=== PATIENT | female | born 1960 | race Caucasian/White ===

== ENCOUNTER 2016-10-08 18:34 | Inpatient (IN) | payer MEDICAID ==
[~2016-10-08] VITALS: Ht 157.5 cm; Wt 56.7 kg
[2016-10-08] MEDS ORDERED: HALOPERIDOL LACTATE 5 MG/ML INJ VIAL ONE (19:05)
[2016-10-08] MEDS ORDERED: diphenhdrAMINE HCL 50 MG/1 ML VL ONE (19:05)
[2016-10-08] MEDS ORDERED: LORazepam 2MG/ML-1ML VIAL ONE (19:05)
[2016-10-08] MEDS ORDERED: HALOPERIDOL LACTATE 5 MG/ML INJ VIAL IM ONE (19:15)
[2016-10-08] MEDS ORDERED: diphenhdrAMINE HCL 50 MG/1 ML VL IM ONE (19:15)
[2016-10-08] MEDS ORDERED: LORazepam 2MG/ML-1ML VIAL IM ONE (19:15)
[2016-10-08 20:14] LABS: Basophils # (auto) 0 uL; Basophils % (auto) 0.3 % (0.0-2.0); Eosinophils # (auto) 0 uL; Hematocrit 44.6 % (36.0-46.0); Hemoglobin 14.7 g/dL (12.2-16.2); Lymphocytes # (auto) 3.4 uL; Lymphocytes % (auto) 33.6 % (10.0-50.0); Mean Corpuscular Hemoglobin 30.7 pg (28.0-32.0); Mean Corpuscular Hgb Conc. 32.9 g/dL (32.0-36.0); Mean Corpuscular Volume 93.2 fL (80.0-100.0); Mean Platelet Volume 9.2 fL (7.4-10.4); Monocytes # (auto) 0.6 uL; Monocytes % (auto) 5.8 % (0.0-12.0); Neutrophils # (auto) 6.2 uL; Neutrophils % (auto) 60.3 % (37.0-80.0); Platelet Count (auto) 300 10^3/uL (140-450); Red Cell Distribution Width 14.4 % (11.6-16.0); White Blood Cell 10.2 10^3/uL (4.4-10.8)
[2016-10-08 20:37] LABS: Albumin 3.6 g/dL (3.4-5.0); Anion Gap 14 (5-15); Blood Urea Nitrogen 16 mg/dL (7-18); Calcium 9.3 mg/dL (8.5-10.1); Carbon Dioxide 22 mmol/L (21-32); Chloride 110 mmol/L (98-107); Glucose 116 mg/dL (74-106); Magnesium 1.6 mg/dL (1.6-2.6); Potassium 3.6 mmol/L (3.5-5.1); Sodium 146 mmol/L (136-145)
[2016-10-08 20:39] LABS: Aspartate Aminotransferase 18 U/L (15-37); BUN/Creatinine Ratio 18.2; GFR African American 85 mL/min; GFR Non-African American 70 mL/min
[2016-10-08 20:42] LABS: Acetaminophen < 2.0 ug/mL (10-30)
[2016-10-08 20:47] LABS: Alkaline Phosphatase 87 U/L (45-117); Bilirubin, Total 0.3 mg/dL (0.2-1.0); Total Protein 6.8 g/dL (6.4-8.2)
[2016-10-08] MEDS ORDERED: ONDANSETRON HCL 4 MG/2 ML VIAL IV ONE (23:30)
[2016-10-08] MEDS ORDERED: NALBUPHINE HCL 10 MG/1ml INJECTION IV ONE (23:30)
[2016-10-09] MEDS ORDERED: diphenhdrAMINE HCL 50 MG/1 ML VL IV ONE (02:15)
[2016-10-09] MEDS ORDERED: HALOPERIDOL LACTATE 5 MG/ML INJ VIAL IM ONE (02:15)
[2016-10-09] MEDS ORDERED: LORazepam 2MG/ML-1ML VIAL IM ONE (02:15)
[2016-10-09] MEDS ORDERED: DIVA500T7 PO ×2 (05:41→05:52)
[2016-10-09] MEDS ORDERED: ATOR10TA52 PO (05:52)
[2016-10-09] MEDS ORDERED: ASP81EC PO (05:52)
[2016-10-09] MEDS ORDERED: METF-314 PO (05:52)
[2016-10-09 06:10] LABS: Urine Squamous Epithelial Cell None Seen /hpf (<5)
[2016-10-09 06:23] LABS: Urine Bilirubin Negative (Negative); Urine Color Yellow (Yellow); Urine Glucose Trace mg/dL (Normal)
[2016-10-09 06:24] LABS: Urine Blood Negative /uL (Negative); Urine Ketone Trace (Negative); Urine Mucus FEW (None Seen); Urine Nitrite Negative (Negative); Urine RBC 2 /hpf (0 - 4); Urine WBC Clumps FEW /hpf (None Seen)
[2016-10-09] MEDS ORDERED: HYDROcodone-ACET 5/325MG TAB PO PRN (06:30)
[2016-10-09] MEDS ORDERED: ONDANSETRON HCL 4 MG/2 ML VIAL IV PRN (06:30)
[2016-10-09] MEDS ORDERED: TEMAZEPAM 15 MG CAP PO PRN (06:30)
[2016-10-09] MEDS ORDERED: ACETAMINOPHEN 325 MG TAB PO PRN (06:30)
[2016-10-09] MEDS ORDERED: DEXTROSE (50%) 50ML SYRG IV PRN ×2 (06:30→13:45)
[2016-10-09] MEDS ORDERED: ENOXAPARIN SOD 40 MG/0.4 ML SYRINGE SC SCH (10:00)
[2016-10-09] MEDS ORDERED: FAMOTIDINE 20 MG TAB PO SCH (10:00)
[2016-10-09] MEDS ORDERED: InsuLIN REG 1unit/0.01ml Soln (100units/ml) SC SCH ×2 (12:00→17:00)
[2016-10-09] MEDS ORDERED: ACCU-CHEK COMFORT CURVE STRIP VI SCH ×2 (12:00→17:00)
[2016-10-09 13:51] VITALS: BP 111/70
[2016-10-09] MEDS ORDERED: ATORVASTATIN 20 MG TAB PO SCH (22:00)
== END 2016-10-09 15:35 | disposition left against medical advice (07) | DRG 52 ==
LOC: ER 18:39 → OVERFLOW 18:40
PROVIDERS: ADMIT Nurse Practitioner; ATTEND Internal Medicine
DX: G93.41 Metabolic encephalopathy (principal); F23 Brief psychotic disorder; E11.9 Type 2 diabetes mellitus without complications; G40.909 Epilepsy, unspecified, not intractable, without status epilepticus; E78.5 Hyperlipidemia, unspecified; Z53.21 Procedure and treatment not carried out due to patient leaving prior to being seen by health care provider
CPT/HCPCS: 36415; 70450; 80053; 80307; 80320; 80329; 81001; 82962; 83735; 84484; 85025; 93005; 96372; 96374; 96375; J1815; J2405

== ENCOUNTER 2016-10-21 01:09 | Inpatient (IN) | payer MEDICAID ==
[~2016-10-21] VITALS: Ht 167.6 cm; Wt 66.5 kg
[~2016-10-21 01:09] MED LIST: ASP81EC PO; ATOR10TA52 PO; DIVA500T7 PO; METF-314 PO
[2016-10-21] MEDS ORDERED: HALOPERIDOL LACTATE 5 MG/ML INJ VIAL IM ONE (01:30)
[2016-10-21] MEDS ORDERED: LORazepam 2MG/ML-1ML VIAL IV ONE (01:30)
[2016-10-21] MEDS ORDERED: diphenhdrAMINE HCL 50 MG/1 ML VL IV ONE (01:30)
[2016-10-21] MEDS ORDERED: SODIUM CHLORIDE 0.9% 500 ML IVB ONE (01:42)
[2016-10-21 02:04] LABS: Basophils # (auto) 0 uL; Basophils % (auto) 0.3 % (0.0-2.0); Eosinophils # (auto) 0 uL; Eosinophils % (auto) 0.1 % (0.0-7.0); Hematocrit 41.3 % (36.0-46.0); Hemoglobin 13.9 g/dL (12.2-16.2); Lymphocytes # (auto) 4.7 uL; Lymphocytes % (auto) 47.2 % (10.0-50.0); Mean Corpuscular Hemoglobin 30.7 pg (28.0-32.0); Mean Corpuscular Hgb Conc. 33.5 g/dL (32.0-36.0); Mean Corpuscular Volume 91.6 fL (80.0-100.0); Mean Platelet Volume 8.3 fL (7.4-10.4); Monocytes # (auto) 0.6 uL; Monocytes % (auto) 6.3 % (0.0-12.0); Neutrophils # (auto) 4.6 uL; Neutrophils % (auto) 46.1 % (37.0-80.0); Platelet Count (auto) 316 10^3/uL (140-450); Red Cell Distribution Width 14.6 % (11.6-16.0)
[2016-10-21 02:11] LABS: Urine Bilirubin Negative (Negative); Urine Blood Negative /uL (Negative); Urine Color Yellow (Yellow); Urine Glucose Normal (Normal); Urine Ketone Negative (Negative); Urine Mucus FEW (None Seen); Urine Nitrite Negative (Negative); Urine RBC 1 /hpf (0 - 4); Urine Squamous Epithelial Cell FEW /hpf (<5); Urine Urobilinogen Normal (Negative)
[2016-10-21 02:17] LABS: Partial Thromboplastin Time 27.6 sec (22.64-33.71); Prothrombin Time 10.9 sec (9.37-12.3)
[2016-10-21] MEDS ORDERED: SODIUM CHLORIDE 0.9% 1,000 ML IV ONE ×2 (02:24→02:33)
[2016-10-21 02:29] LABS: Albumin 3.2 g/dL (3.4-5.0); Anion Gap 12 (5-15); Aspartate Aminotransferase 23 U/L (15-37); BUN/Creatinine Ratio 20.6; Blood Urea Nitrogen 14 mg/dL (7-18); Calcium 8.9 mg/dL (8.5-10.1); Carbon Dioxide 26 mmol/L (21-32); Chloride 108 mmol/L (98-107); GFR African American 115 mL/min; GFR Non-African American 95 mL/min; Glucose 98 mg/dL (74-106); Magnesium 1.8 mg/dL (1.6-2.6); Potassium 4.1 mmol/L (3.5-5.1); Sodium 146 mmol/L (136-145)
[2016-10-21 02:35] LABS: Alkaline Phosphatase 86 U/L (45-117); Bilirubin, Total 0.4 mg/dL (0.2-1.0); Total Protein 6.5 g/dL (6.4-8.2)
[2016-10-21 03:18] LABS: B-Type Natriuretic Peptide 37.79 pg/mL (0-100)
[2016-10-21 03:45] LABS: Temperature: 22.5 C (20.0-25.0)
[2016-10-21] MEDS ORDERED: OLAN5TAB30 PO (05:27)
[2016-10-21] MEDS ORDERED: DIVA250T6 PO (05:27)
[2016-10-21] MEDS ORDERED: ATE25T PO (05:27)
[2016-10-21] MEDS ORDERED: ATOR20TA50 PO (05:27)
[2016-10-21] MEDS ORDERED: SODIUM CHLORIDE 0.9% 1,000 ML IV SCH (05:28)
[2016-10-21] MEDS ORDERED: NITROGLYCERIN 0.4 MG SL TAB SL PRN (05:30)
[2016-10-21] MEDS ORDERED: DOCUSATE SOD 100 MG CAP PO PRN (05:30)
[2016-10-21] MEDS ORDERED: MORPHINE SULF INJ 2 MG/ML SYRINGE 1ML IV PRN (05:30)
[2016-10-21] MEDS ORDERED: DEXTROSE (50%) 50ML SYRG IV PRN ×2 (05:30→16:30)
[2016-10-21 08:00] VITALS: BP 108/84
[2016-10-21] MEDS: InsuLIN REG 1unit/0.01ml Soln (100units/ml) SC SCH ×4 (08:00→21:55)
[2016-10-21] MEDS: ACCU-CHEK COMFORT CURVE STRIP VI SCH ×4 (08:00→21:54)
[2016-10-21] MEDS: ATENOLOL 25 MG TAB PO SCH ×2 (10:00→21:54)
[2016-10-21] MEDS: ASPirin-EC 81 mg tab PO SCH (10:00)
[2016-10-21] MEDS ORDERED: OLANZapine 5 MG TAB PO ONE (16:30)
[2016-10-21 20:00] VITALS: BP 106/60
[2016-10-21 21:00] VITALS: BP 106/60
[2016-10-21] MEDS ORDERED: ATORVASTATIN 20 MG TAB PO SCH (22:00)
[2016-10-21] MEDS ORDERED: OLANZapine 5 MG TAB PO SCH (22:00)
[2016-10-22 05:00] VITALS: BP 108/67
[2016-10-22] MEDS: ACCU-CHEK COMFORT CURVE STRIP VI SCH ×3 (06:16→17:00)
[2016-10-22] MEDS: InsuLIN REG 1unit/0.01ml Soln (100units/ml) SC SCH ×3 (06:16→17:00)
[2016-10-22 08:00] VITALS: BP 108/67
[2016-10-22 09:00] VITALS: BP 115/70
[2016-10-22] MEDS ORDERED: OLANZapine 5 MG TAB PO SCH (10:00)
[2016-10-22] MEDS: ATENOLOL 25 MG TAB PO SCH (10:14)
[2016-10-22] MEDS: ASPirin-EC 81 mg tab PO SCH (10:14)
[2016-10-22 13:00] VITALS: BP 108/70
[2016-10-22 17:00] VITALS: BP 127/73
[2016-10-22 17:28] VITALS: BP 115/70
== END 2016-10-22 19:06 | disposition home or self-care (01) | DRG 52 ==
LOC: ER 01:09 → EDBD 01:09 → TELE 01:10 → WEST WING 07:20 → TELE-WESTW 07:35 → WEST WING 19:17
PROVIDERS: ADMIT Emergency Medicine; ATTEND Family Medicine
DX: G93.41 Metabolic encephalopathy (principal); E87.0 Hyperosmolality and hypernatremia; E44.1 Mild protein-calorie malnutrition; E78.5 Hyperlipidemia, unspecified; F20.9 Schizophrenia, unspecified; E11.9 Type 2 diabetes mellitus without complications; F17.210 Nicotine dependence, cigarettes, uncomplicated; J98.11 Atelectasis; F31.9 Bipolar disorder, unspecified; G40.909 Epilepsy, unspecified, not intractable, without status epilepticus; I10 Essential (primary) hypertension; Z91.14 Patient's other noncompliance with medication regimen; Z68.23 Body mass index [BMI] 23.0-23.9, adult
CPT/HCPCS: 36415; 51702; 70450; 71010; 80053; 80307; 80320; 81001; 82962; 83735; 83880; 84484; 85025; 85610; 85730; 93005; 96361; 96372; 96374; 96375; J1815

== ENCOUNTER 2016-11-20 12:14 | Inpatient (IN) | payer MEDICAID ==
[~2016-11-20] VITALS: Ht 157.5 cm; Wt 63.4 kg
[~2016-11-20 12:14] MED LIST changes: +ATE25T PO; +ATOR20TA50 PO; +DIVA250T6 PO; -METF-314 PO; +METF-371 PO; +OLAN5TAB30 PO
[2016-11-20 13:13] LABS: Basophils # (auto) 0.1 uL; Basophils % (auto) 0.5 % (0.0-2.0); CONDITION Y; Eosinophils # (auto) 0 uL; Eosinophils % (auto) 0.1 % (0.0-7.0); Lymphocytes # (auto) 4.5 uL; Lymphocytes % (auto) 32.4 % (10.0-50.0); Mean Corpuscular Hemoglobin 31.4 pg (28.0-32.0); Mean Corpuscular Hgb Conc. 34.1 g/dL (32.0-36.0); Mean Corpuscular Volume 91.9 fL (80.0-100.0); Mean Platelet Volume 7.9 fL (7.4-10.4); Monocytes # (auto) 1.2 uL; Monocytes % (auto) 8.7 % (0.0-12.0); Neutrophils % (auto) 58.3 % (37.0-80.0); Platelet Count (auto) 295 10^3/uL (140-450); Red Cell Distribution Width 15.3 % (11.6-16.0); White Blood Cell 13.8 10^3/uL (4.4-10.8)
[2016-11-20 13:31] LABS: Albumin 3.2 g/dL (3.4-5.0); BUN/Creatinine Ratio 12.1; Calcium 8.8 mg/dL (8.5-10.1); Potassium 3.4 mmol/L (3.5-5.1)
[2016-11-20 13:46] LABS: Bilirubin, Total 0.2 mg/dL (0.2-1.0); Total Protein 6.7 g/dL (6.4-8.2)
[2016-11-20] MEDS ORDERED: CLINDAMYCIN 600MG IV 50 ML IV ONE (17:30)
[2016-11-20] MEDS ORDERED: KETOROLAC TROMETH 30 MG/ML 1ML VIAL IV ONE (17:30)
[2016-11-20] MEDS ORDERED: TETANUS-DIPTH-ACEL PERTUSSIS 0.5ML SYRG IM ONE (17:30)
[2016-11-20] MEDS ORDERED: ENOXAPARIN SOD 100 MG/1 ML SYRINGE SC ONE (21:15)
[2016-11-20] MEDS ORDERED: TEMAZEPAM 15 MG CAP PO PRN (22:45)
[2016-11-20] MEDS ORDERED: POTASSIUM CHL 20 Meq TABLET PO ONE (22:45)
[2016-11-20] MEDS ORDERED: ONDANSETRON HCL 4 MG/2 ML VIAL IV PRN (22:45)
[2016-11-20] MEDS ORDERED: traMADol HCL 50 MG TAB PO PRN (22:45)
[2016-11-20] MEDS ORDERED: DEXTROSE (50%) 50ML SYRG IV PRN (22:45)
[2016-11-21 02:00] VITALS: BP 147/84
[2016-11-21 05:30] VITALS: BP 122/75
[2016-11-21] MEDS: ACCU-CHEK COMFORT CURVE STRIP VI SCH ×3 (06:00→22:23)
[2016-11-21] MEDS: InsuLIN REG 1unit/0.01ml Soln (100units/ml) SC SCH ×3 (06:00→22:00)
[2016-11-21 07:35] LABS: Basophils # (auto) 0 uL; Basophils % (auto) 0.3 % (0.0-2.0); CONDITION Y; Eosinophils # (auto) 0 uL; Eosinophils % (auto) 0.1 % (0.0-7.0); Hematocrit 41.4 % (36.0-46.0); Hemoglobin 13.8 g/dL (12.2-16.2); Lymphocytes # (auto) 4.1 uL; Lymphocytes % (auto) 31.9 % (10.0-50.0); Mean Corpuscular Hemoglobin 30.8 pg (28.0-32.0); Mean Corpuscular Hgb Conc. 33.3 g/dL (32.0-36.0); Mean Corpuscular Volume 92.2 fL (80.0-100.0); Mean Platelet Volume 8.3 fL (7.4-10.4); Monocytes # (auto) 1.1 uL; Monocytes % (auto) 8.2 % (0.0-12.0); Neutrophils # (auto) 7.6 uL; Neutrophils % (auto) 59.5 % (37.0-80.0); Platelet Count (auto) 289 10^3/uL (140-450); Red Cell Distribution Width 14.9 % (11.6-16.0); White Blood Cell 12.8 10^3/uL (4.4-10.8)
[2016-11-21 07:47] LABS: BUN/Creatinine Ratio 22.8; Bilirubin, Total 0.4 mg/dL (0.2-1.0); Calcium 8.7 mg/dL (8.5-10.1); Potassium 3.8 mmol/L (3.5-5.1); Total Protein 6.4 g/dL (6.4-8.2)
[2016-11-21] MEDS ORDERED: RIS1T PO (07:58)
[2016-11-21 08:17] VITALS: BP 105/75
[2016-11-21] MEDS: cefTRIAXone 1GM/50ML D5W 50 ML IV SCH (08:55)
[2016-11-21] MEDS ORDERED: ENOXAPARIN SOD 80 MG/0.8ML SYRINGE SC SCH (10:00)
[2016-11-21] MEDS: ATENOLOL 25 MG TAB PO SCH ×2 (10:01→22:23)
[2016-11-21] MEDS: FAMOTIDINE 20 MG TAB PO SCH ×2 (10:01→22:22)
[2016-11-21 13:02] VITALS: BP 123/76
[2016-11-21] MEDS ORDERED: DEXTROSE (50%) 50ML SYRG IV PRN (17:30)
[2016-11-21] MEDS ORDERED: OLANZapine 5 MG TAB PO ONE (17:45)
[2016-11-21] MEDS ORDERED: risperiDONE 1 MG TAB PO ONE (17:45)
[2016-11-21] MEDS ORDERED: ASPirin-EC 81 mg tab PO ONE (17:45)
[2016-11-21 22:00] VITALS: BP 138/86
[2016-11-21] MEDS ORDERED: ATORVASTATIN 20 MG TAB PO SCH (22:00)
[2016-11-22 05:46] LABS: Basophils # (auto) 0.1 uL; Basophils % (auto) 0.5 % (0.0-2.0); CONDITION Y; Eosinophils # (auto) 0 uL; Eosinophils % (auto) 0.1 % (0.0-7.0); Hematocrit 41.3 % (36.0-46.0); Lymphocytes # (auto) 4.4 uL; Lymphocytes % (auto) 38.1 % (10.0-50.0); Mean Corpuscular Hemoglobin 30.9 pg (28.0-32.0); Mean Corpuscular Hgb Conc. 33.8 g/dL (32.0-36.0); Mean Corpuscular Volume 91.5 fL (80.0-100.0); Mean Platelet Volume 8.2 fL (7.4-10.4); Monocytes # (auto) 0.8 uL; Neutrophils # (auto) 6.2 uL; Neutrophils % (auto) 54.3 % (37.0-80.0); Platelet Count (auto) 311 10^3/uL (140-450); Red Cell Distribution Width 14.7 % (11.6-16.0); White Blood Cell 11.5 10^3/uL (4.4-10.8)
[2016-11-22 05:50] VITALS: BP 128/74
[2016-11-22 06:10] LABS: BUN/Creatinine Ratio 32.2; Calcium 9.2 mg/dL (8.5-10.1); Magnesium 2.1 mg/dL (1.6-2.6); Potassium 4.2 mmol/L (3.5-5.1)
[2016-11-22] MEDS: ACCU-CHEK COMFORT CURVE STRIP VI SCH ×2 (06:38→11:30)
[2016-11-22] MEDS: InsuLIN REG 1unit/0.01ml Soln (100units/ml) SC SCH ×2 (06:39→11:18)
[2016-11-22] MEDS: cefTRIAXone 1GM/50ML D5W 50 ML IV SCH (09:00)
[2016-11-22 09:01] VITALS: BP 138/88
[2016-11-22] MEDS ORDERED: OLANZapine 5 MG TAB PO SCH (10:00)
[2016-11-22] MEDS ORDERED: ENOXAPARIN SOD 40 MG/0.4 ML SYRINGE SC SCH (10:00)
[2016-11-22] MEDS ORDERED: ASPirin-EC 81 mg tab PO SCH (10:00)
[2016-11-22] MEDS ORDERED: risperiDONE 1 MG TAB PO SCH (10:00)
[2016-11-22] MEDS: FAMOTIDINE 20 MG TAB PO SCH (10:14)
[2016-11-22] MEDS: ATENOLOL 25 MG TAB PO SCH (10:16)
[2016-11-22] MEDS ORDERED: CLIN1CAP4 PO (11:08)
[2016-11-22] MEDS ORDERED: SACC250C PO (11:08)
[2016-11-22] MEDS ORDERED: CEPH-37 PO (11:08)
[2016-11-22 11:50] VITALS: BP 130/69
[2016-11-22 12:55] VITALS: BP 138/88
[2016-11-22 13:20] VITALS: BP 138/88
== END 2016-11-22 14:10 | disposition home or self-care (01) | DRG 720 ==
LOC: ER 12:14 → OVERFLOW 12:15 → WEST WING 11-21 01:45
PROVIDERS: ADMIT Internal Medicine; ATTEND Internal Medicine
DX: A41.9 Sepsis, unspecified organism (principal); I82.91 Chronic embolism and thrombosis of unspecified vein; I10 Essential (primary) hypertension; L03.115 Cellulitis of right lower limb; E11.9 Type 2 diabetes mellitus without complications; F17.210 Nicotine dependence, cigarettes, uncomplicated; F20.9 Schizophrenia, unspecified; F32.9 Major depressive disorder, single episode, unspecified; F41.9 Anxiety disorder, unspecified; E66.9 Obesity, unspecified; E78.5 Hyperlipidemia, unspecified; M19.90 Unspecified osteoarthritis, unspecified site; Z88.5 Allergy status to narcotic agent; Z88.8 Allergy status to other drugs, medicaments and biological substances; Z23 Encounter for immunization; Z68.25 Body mass index [BMI] 25.0-25.9, adult
CPT/HCPCS: 36415; 73610; 73630; 80048; 80053; 80061; 82962; 83036; 83735; 85025; 87040; 87081; 90471; 90715; 93971; 96365; 96366; 96367; 96375; J0696; J1815; J1885; J3490

== ENCOUNTER 2017-02-19 14:42 | Inpatient (IN) | payer MEDICAID ==
[~2017-02-19] VITALS: Ht 157.5 cm; Wt 71.3 kg
[~2017-02-19 14:42] MED LIST changes: +CEPH-37 PO; +CLIN1CAP4 PO; +RIS1T PO; +SACC250C PO
[2017-02-19] MEDS ORDERED: SODIUM CHLORIDE 0.9% 1,000 ML IV ONE (15:46)
[2017-02-19] MEDS ORDERED: MORPHINE SULF INJ 2 MG/ML SYRINGE 1ML IV PRN ×4 (16:00→18:30)
[2017-02-19] MEDS ORDERED: ONDANSETRON HCL 4 MG/2 ML VIAL IV ONE (16:00)
[2017-02-19] MEDS ORDERED: ASPirin 81 mg TAB PO ONE (16:00)
[2017-02-19 16:03] LABS: Basophils # (auto) 0.1 uL; Basophils % (auto) 0.5 % (0.0-2.0); Eosinophils # (auto) 0 uL; Eosinophils % (auto) 0.1 % (0.0-7.0); Hematocrit 46.2 % (36.0-46.0); Lymphocytes # (auto) 4.8 uL; Lymphocytes % (auto) 50.9 % (10.0-50.0); Mean Corpuscular Hemoglobin 31.2 pg (28.0-32.0); Mean Corpuscular Hgb Conc. 34.6 g/dL (32.0-36.0); Mean Corpuscular Volume 90.2 fL (80.0-100.0); Monocytes # (auto) 0.5 uL; Monocytes % (auto) 4.8 % (0.0-12.0); Neutrophils # (auto) 4.2 uL; Neutrophils % (auto) 43.7 % (37.0-80.0); Nucleated Red Blood Cells % 0.2 %; Platelet Count (auto) 221 10^3/uL (140-450); Red Cell Distribution Width 14.9 % (11.8-14.3); White Blood Cell 9.5 10^3/uL (4.4-10.8)
[2017-02-19 16:07] LABS: Albumin 3.6 g/dL (3.4-5.0); BUN/Creatinine Ratio 18.4; Bilirubin, Total 0.2 mg/dL (0.2-1.0); Potassium 3.4 mmol/L (3.5-5.1); Total Protein 6.9 g/dL (6.4-8.2)
[2017-02-19 16:54] LABS: Partial Thromboplastin Time 27.3 sec (22.64-33.71); Prothrombin Time 10.9 sec (9.37-12.3)
[2017-02-19] MEDS ORDERED: POTASSIUM CHL 20 Meq TABLET PO ONE (17:15)
[2017-02-19] MEDS ORDERED: TEMAZEPAM 15 MG CAP PO PRN (18:30)
[2017-02-19] MEDS ORDERED: NITROGLYCERIN 0.4 MG SL TAB SL PRN (18:30)
[2017-02-19] MEDS ORDERED: DEXTROSE (50%) 50ML SYRG IV PRN (18:30)
[2017-02-19] MEDS: SODIUM CHLORIDE 0.9% 1,000 ML IV SCH (18:44)
[2017-02-19 22:00] VITALS: BP 109/79
[2017-02-19] MEDS: ATENOLOL 25 MG TAB PO SCH (22:00)
[2017-02-19] MEDS: ACCU-CHEK COMFORT CURVE STRIP VI SCH (22:00)
[2017-02-19] MEDS: InsuLIN REG 1unit/0.01ml Soln (100units/ml) SC SCH (22:00)
[2017-02-19 22:27] VITALS: BP 109/79
[2017-02-19] MEDS: OLANZapine 5 MG TAB PO SCH (22:37)
[2017-02-19] MEDS: ATORVASTATIN 20 MG TAB PO SCH (22:37)
[2017-02-19] MEDS: risperiDONE 1 MG TAB PO SCH (22:38)
[2017-02-20] VITALS (8 sets, daily range): BP systolic 82–156; BP diastolic 47–79
[2017-02-20] MEDS: InsuLIN REG 1unit/0.01ml Soln (100units/ml) SC SCH ×4 (06:22→21:42)
[2017-02-20] MEDS: risperiDONE 1 MG TAB PO SCH ×4 (06:22→21:42)
[2017-02-20] MEDS: ACCU-CHEK COMFORT CURVE STRIP VI SCH ×4 (06:22→21:42)
[2017-02-20] MEDS ORDERED: FLORASTOR (S. BOULARDII) 250 MG CAP PO SCH (10:00)
[2017-02-20] MEDS: ATENOLOL 25 MG TAB PO SCH ×2 (10:00→22:00)
[2017-02-20] MEDS ORDERED: NITROGLYCERIN 0.2MG/HR TOPICAL PATCH TD SCH (10:00)
[2017-02-20] MEDS ORDERED: ASPirin-EC 81 mg tab PO SCH (10:00)
[2017-02-20] MEDS ORDERED: ENOXAPARIN SOD 40 MG/0.4 ML SYRINGE SC SCH (10:00)
[2017-02-20] MEDS ORDERED: PANTOPRAZOLE 40 MG TAB PO SCH (10:00)
[2017-02-20] MEDS: SODIUM CHLORIDE 0.9% 1,000 ML IV SCH ×2 (11:05→21:41)
[2017-02-20] MEDS ORDERED: ISOSORBIDE DINITRATE 10 MG TAB PO ONE (12:15)
[2017-02-20] MEDS: ISOSORBIDE DINITRATE 10 MG TAB PO SCH (17:48)
[2017-02-20] MEDS: ATORVASTATIN 20 MG TAB PO SCH (21:41)
[2017-02-20] MEDS: OLANZapine 5 MG TAB PO SCH (21:42)
[2017-02-21 05:19] VITALS: BP 118/60
[2017-02-21] MEDS: ISOSORBIDE DINITRATE 10 MG TAB PO SCH (06:00)
[2017-02-21] MEDS: risperiDONE 1 MG TAB PO SCH (06:35)
[2017-02-21] MEDS: InsuLIN REG 1unit/0.01ml Soln (100units/ml) SC SCH (06:36)
[2017-02-21] MEDS: ACCU-CHEK COMFORT CURVE STRIP VI SCH (06:36)
[2017-02-21 08:00] VITALS: BP 95/47
[2017-02-21] MEDS ORDERED: IODIXANOL 320MG/ML 100ML BTL IV ONE (08:54)
[2017-02-21] MEDS ORDERED: LIDOCAINE 2%HCL (LOCAL ANESTH.) INJ 20ML MDV ONE (08:54)
[2017-02-21] MEDS ORDERED: MIDAZOLAM HCL 1MG/1ML-2 ML VIAL ONE (09:33)
[2017-02-21] MEDS ORDERED: VERAPAMIL 2.5MG/ML INJ 2ML VIAL IV ONE (09:34)
[2017-02-21] MEDS ORDERED: SODIUM CHL 0.9% 0 ML ONE (09:34)
[2017-02-21] MEDS ORDERED: fentaNYL CITRATE 100 MCG/2 ML VL ONE (09:34)
[2017-02-21] MEDS ORDERED: ANGIOMAX 250 MG VIAL IV ONE (09:34)
[2017-02-21 10:19] VITALS: BP 103/52
[2017-02-21] MEDS ORDERED: HEPARIN SODIUM (PORCINE) 5000 UNITS/ML 1ML VIAL ONE (10:24)
[2017-02-21 14:58] VITALS: BP 129/85
== END 2017-02-21 16:10 | disposition home or self-care (01) | DRG 192 ==
LOC: EDBD 14:42 → ER 14:54 → TELE 14:55 → TELE-WESTW 22:00
PROVIDERS: ADMIT Internal Medicine; ATTEND Internal Medicine Pulmonary Disease
PROC: 4A023N7 Measurement of Cardiac Sampling and Pressure, Left Heart, Percutaneous Approach (ICD-10-PCS; principal; 2017-02-21)
PROC: B2111ZZ Fluoroscopy of Multiple Coronary Arteries using Low Osmolar Contrast (ICD-10-PCS; 2017-02-21)
PROC: B2151ZZ Fluoroscopy of Left Heart using Low Osmolar Contrast (ICD-10-PCS; 2017-02-21)
DX: R07.89 Other chest pain (principal); F20.9 Schizophrenia, unspecified; I10 Essential (primary) hypertension; R00.1 Bradycardia, unspecified; E11.9 Type 2 diabetes mellitus without complications; E87.6 Hypokalemia; F31.9 Bipolar disorder, unspecified; E78.5 Hyperlipidemia, unspecified; I51.89 Other ill-defined heart diseases; E78.1 Pure hyperglyceridemia; G47.00 Insomnia, unspecified; F17.210 Nicotine dependence, cigarettes, uncomplicated; Z81.8 Family history of other mental and behavioral disorders; Z88.6 Allergy status to analgesic agent; Z88.8 Allergy status to other drugs, medicaments and biological substances; Z79.899 Other long term (current) drug therapy; Z71.6 Tobacco abuse counseling
CPT/HCPCS: 36415; 71010; 80053; 80061; 80164; 82550; 82962; 83036; 83735; 84443; 84484; 85025; 85379; 85610; 85652; 85730; 86141; 93005; 93458; 94761; 99152; 99153; J1815; J2250; J2405; Q9967

== ENCOUNTER 2017-03-02 15:55 | Inpatient (IN) | payer MEDICAID ==
[~2017-03-02] VITALS: Ht 157.5 cm; Wt 67.5 kg
[~2017-03-02 15:55] MED LIST changes: -ATE25T PO; -CEPH-37 PO; -CLIN1CAP4 PO
[2017-03-02 17:20] LABS: Basophils # (auto) 0.1 uL; Basophils % (auto) 0.7 % (0.0-2.0); Eosinophils # (auto) 0 uL; Eosinophils % (auto) 0.1 % (0.0-7.0); Hematocrit 43.8 % (36.0-46.0); Hemoglobin 15.3 g/dL (12.2-16.2); Lymphocytes # (auto) 4.5 uL; Lymphocytes % (auto) 48.2 % (10.0-50.0); Mean Corpuscular Hemoglobin 31.5 pg (28.0-32.0); Mean Corpuscular Hgb Conc. 34.9 g/dL (32.0-36.0); Mean Corpuscular Volume 90.4 fL (80.0-100.0); Mean Platelet Volume 7.5 fL (6.9-10.8); Monocytes # (auto) 0.5 uL; Monocytes % (auto) 5.4 % (0.0-12.0); Neutrophils # (auto) 4.3 uL; Neutrophils % (auto) 45.6 % (37.0-80.0); Nucleated Red Blood Cells % 0.1 %; Platelet Count (auto) 232 10^3/uL (140-450); White Blood Cell 9.4 10^3/uL (4.4-10.8)
[2017-03-02 17:40] LABS: Albumin 3.7 g/dL (3.4-5.0); BUN/Creatinine Ratio 19.6; Bilirubin, Total 0.2 mg/dL (0.2-1.0); Calcium 8.7 mg/dL (8.5-10.1); Magnesium 2.2 mg/dL (1.6-2.6); Potassium 3.6 mmol/L (3.5-5.1); Total Protein 6.6 g/dL (6.4-8.2)
[2017-03-02] MEDS ORDERED: ASPirin 81 mg TAB PO ONE (20:30)
[2017-03-02 20:46] LABS: Urine Bilirubin Negative (Negative); Urine Blood Negative /uL (Negative); Urine Ca Oxalate Crystal FEW (None Seen); Urine Color Yellow (Yellow); Urine Glucose Normal (Normal); Urine Ketone Negative (Negative); Urine Mucus FEW (None Seen); Urine Nitrite Negative (Negative); Urine RBC 2 /hpf (0 - 4); Urine Squamous Epithelial Cell FEW /hpf (<5); Urine Urobilinogen Normal (Negative); Urine pH 5.5 (5.0-8.0)
[2017-03-02] MEDS ORDERED: traMADol HCL 50 MG TAB PO ONE (21:15)
[2017-03-02] MEDS ORDERED: NITROGLYCERIN 0.4 MG SL TAB SL PRN (21:45)
[2017-03-02] MEDS ORDERED: MORPHINE SULF INJ 2 MG/ML SYRINGE 1ML IV PRN ×2 (21:45→22:15)
[2017-03-02] MEDS ORDERED: traMADol HCL 50 MG TAB PO PRN (22:15)
[2017-03-02] MEDS ORDERED: IBUPROFEN 600 MG TAB PO PRN (22:15)
[2017-03-02] MEDS: OLANZapine 5 MG TAB PO SCH (22:30)
[2017-03-02] MEDS: ATORVASTATIN 20 MG TAB PO SCH (22:30)
[2017-03-03 07:54] LABS: Hematocrit 43.8 % (36.0-46.0); Mean Corpuscular Hgb Conc. 34.2 g/dL (32.0-36.0); Mean Corpuscular Volume 90.6 fL (80.0-100.0); Mean Platelet Volume 7.8 fL (6.9-10.8); Platelet Count (auto) 225 10^3/uL (140-450); Red Cell Distribution Width 14.9 % (11.8-14.3); White Blood Cell 9.6 10^3/uL (4.4-10.8)
[2017-03-03 08:09] LABS: INR 0.97 (0.9-1.15); Partial Thromboplastin Time 29.2 sec (22.64-33.71); Prothrombin Time 10.6 sec (9.37-12.3)
[2017-03-03 08:10] LABS: BUN/Creatinine Ratio 20.3; Calcium 8.7 mg/dL (8.5-10.1); Potassium 3.7 mmol/L (3.5-5.1)
[2017-03-03 08:55] LABS: Metamyelocytes % 0; Myelocytes % 0; Promyelocytes % 0; Reactive Lymphocytes 0
[2017-03-03 08:59] LABS: Stomatocytes Few; Tear Drop Cells FEW
[2017-03-03 09:00] LABS: Platelet Estimate Adequate
[2017-03-03] MEDS: ASPirin-EC 81 mg tab PO SCH (09:42)
[2017-03-03] MEDS: risperiDONE 1 MG TAB PO SCH (09:43)
[2017-03-03] MEDS: TERBUTALINE SULFATE 5 MG TAB PO SCH (21:15)
[2017-03-03] MEDS: OLANZapine 5 MG TAB PO SCH (21:16)
[2017-03-03] MEDS: ATORVASTATIN 20 MG TAB PO SCH (21:17)
[2017-03-03 22:00] VITALS: BP 112/64
[2017-03-04 05:00] VITALS: BP 124/72
[2017-03-04 07:02] LABS: BUN/Creatinine Ratio 26.2; Calcium 9.1 mg/dL (8.5-10.1); Potassium 4.2 mmol/L (3.5-5.1)
[2017-03-04 08:56] VITALS: BP 109/56
[2017-03-04] MEDS: TERBUTALINE SULFATE 5 MG TAB PO SCH (10:57)
[2017-03-04] MEDS: risperiDONE 1 MG TAB PO SCH (10:57)
[2017-03-04] MEDS: ASPirin-EC 81 mg tab PO SCH (10:57)
[2017-03-04 13:00] VITALS: BP 132/82
[2017-03-04] MEDS ORDERED: ASP81EC PO (14:13)
[2017-03-04] MEDS ORDERED: RIS1T PO (14:13)
[2017-03-04] MEDS ORDERED: OLAN5TAB30 PO (14:13)
[2017-03-04] MEDS ORDERED: [UNRECOGNIZED DRUG - CODE] PO (14:13)
[2017-03-04] MEDS ORDERED: ATOR20TA50 PO (14:13)
[2017-03-04] MEDS ORDERED: DIVA250T6 PO (14:13)
[2017-03-04 15:20] VITALS: BP 132/82
[2017-03-04] MEDS ORDERED: DIVA250T51 PO (15:40)
[2017-03-04] MEDS ORDERED: DIVA500T7 PO (15:40)
== END 2017-03-04 16:20 | disposition home or self-care (01) | DRG 198 ==
LOC: EDBD 15:55 → ER 16:09 → TELE 16:10 → TELE-E-ADS 03-03 08:55 → TELE-WESTW 03-03 18:28
PROVIDERS: ADMIT Nurse Practitioner Family; ATTEND Internal Medicine
DX: R07.89 Other chest pain (principal); I25.2 Old myocardial infarction; F20.9 Schizophrenia, unspecified; I10 Essential (primary) hypertension; F41.9 Anxiety disorder, unspecified; R00.1 Bradycardia, unspecified; E11.9 Type 2 diabetes mellitus without complications; E78.5 Hyperlipidemia, unspecified; F31.9 Bipolar disorder, unspecified; F17.210 Nicotine dependence, cigarettes, uncomplicated; R51 Headache; Z79.84 Long term (current) use of oral hypoglycemic drugs; Z79.899 Other long term (current) drug therapy; Z81.8 Family history of other mental and behavioral disorders; Z88.8 Allergy status to other drugs, medicaments and biological substances
CPT/HCPCS: 36415; 70450; 71010; 80048; 80053; 81001; 83735; 84443; 84484; 85007; 85025; 85027; 85610; 85730; 86141; 87081; 93005

== ENCOUNTER 2018-04-09 09:43 | Emergency (ER) | payer MEDICAID ==
[~2018-04-09] VITALS: Ht 160 cm; Wt 68.0 kg
[~2018-04-09 09:43] MED LIST changes: +DIVA1TAB59 PO; +DIVA250T51 PO; -DIVA250T6 PO; -DIVA500T7 PO; -METF-371 PO; +TERB5TAB4 PO
[2018-04-09 10:50] LABS: Basophils # (auto) 0 uL; Basophils % (auto) 0.5 % (0.0-2.0); Eosinophils # (auto) 0 uL; Eosinophils % (auto) 0.1 % (0.0-7.0); Hematocrit 43.9 % (36.0-46.0); Hemoglobin 14.6 g/dL (12.2-16.2); Lymphocytes # (auto) 2.1 uL; Lymphocytes % (auto) 40.4 % (10.0-50.0); Mean Corpuscular Hemoglobin 31.6 pg (28.0-32.0); Mean Corpuscular Hgb Conc. 33.2 g/dL (32.0-36.0); Monocytes # (auto) 0.3 uL; Monocytes % (auto) 5.4 % (0.0-12.0); Neutrophils # (auto) 2.8 uL; Neutrophils % (auto) 53.6 % (37.0-80.0); Platelet Count (auto) 226 10^3/uL (140-450); Red Blood Cells 4.62 10^6/uL (4.0-5.20); Red Cell Distribution Width 13.8 % (11.8-14.3); White Blood Cell 5.2 10^3/uL (4.4-10.8)
[2018-04-09 11:12] LABS: Albumin 3.3 g/dL (3.4-5.0); Calcium 8.5 mg/dL (8.5-10.1); Potassium 3.6 mmol/L (3.5-5.1)
[2018-04-09 11:15] LABS: BUN/Creatinine Ratio 18.5; Bilirubin, Total 0.3 mg/dL (0.2-1.0); Total Protein 6.6 g/dL (6.4-8.2)
[2018-04-09] MEDS ORDERED: LORazepam 0.5 MG TAB PO ONE (12:15)
[2018-04-09 13:41] VITALS: BP 110/75
== END 2018-04-09 16:01 | disposition home or self-care (01) ==
LOC: EDBD 09:43 → ER 09:49
DX: F41.9 Anxiety disorder, unspecified (principal); E11.9 Type 2 diabetes mellitus without complications; E78.5 Hyperlipidemia, unspecified; I10 Essential (primary) hypertension; F20.9 Schizophrenia, unspecified; F31.9 Bipolar disorder, unspecified
CPT/HCPCS: 36415; 80053; 85025